=== PATIENT | male | born 1980 | race Two or more races ===

== ENCOUNTER 2016-12-03 03:35 | Emergency (ER) | payer OTHER ==
[~2016-12-03] VITALS: Ht 162.6 cm; Wt 70.3 kg
[2016-12-03 10:07] VITALS: BP 98/58
== END 2016-12-03 10:06 | disposition short-term general hospital (02) ==
LOC: ED 03:35
DX: S02.80XA Fracture of other specified skull and facial bones, unspecified side, initial encounter for closed fracture (principal); S02.91XA Unspecified fracture of skull, initial encounter for closed fracture; S06.0X0A Concussion without loss of consciousness, initial encounter; W19.XXXA Unspecified fall, initial encounter; Y93.89 Activity, other specified; Y92.89 Other specified places as the place of occurrence of the external cause; Y99.8 Other external cause status
CPT/HCPCS: J2405; Q0092